=== PATIENT | female | born 1985 | race American Indian/Alaskan Native ===

== ENCOUNTER 2019-12-16 15:44 | Emergency (ER) | payer SELFPAY ==
--- NOTE | 2019-12-16 15:50 | Event Note ---
ED Screening Note ED Screening Note: came to window requesting breathing treatment-see NOTE she will not speak to staff I've asked staff to take her to back for her breathing treatment and further eval This initial assessment/diagnostic orders/clinical plan/treatment(s) is/are subject to change based on patients health status, clinical progression and re- assessment by fellow clinical providers in the ED. Further treatment and workup at subsequent clinical providers discretion. Patient/guardian urged not to elope from the ED as their condition may be serious if not clinically assessed and managed. Initial orders include:
== END 2019-12-16 15:55 | disposition left against medical advice (07) ==
LOC: ED 15:44
DX: R10.9 Unspecified abdominal pain (principal); Z53.21 Procedure and treatment not carried out due to patient leaving prior to being seen by health care provider